=== PATIENT | female | born 1975 | race Caucasian/White ===

== ENCOUNTER 2020-04-24 23:49 | Emergency (ER) | payer MEDICAID, OTHER ==
[2020-04-25] MEDS ORDERED: Ativan 2 MG/1 ML VIAL ONE (00:04)
[2020-04-25] MEDS ORDERED: Sodium Chloride 0.9% 1000 ML 1,000 ML IV STA (00:04)
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
[2020-04-25] MEDS ORDERED: Ativan 2 MG/1 ML VIAL IM ONE (00:20)
[2020-04-25] MEDS ORDERED: Sodium Chloride 0.9% 1000 ML 1,000 ML ONE (00:20)
[2020-04-25 00:29] LABS: Absolute Neutrophil Ct (ANC) 5.88 (1.4-6.9); BASOPHIL % 0.5 % (0.0-0.4); Basophil (Absolute #) 0.05 (0-0.4); Eosinophil % 1.9 % (0.00-5.0); Hematocrit 39.7 % (35-47); Hemoglobin 13.3 gm/dl (12.0-16.0); Lymphocyte (Absolute #) 3.75 (1.0-4.6); Lymphocytes % 35.6 % (24.0-44.0); Mean Cell Volume 97.5 fl (78-100); Mean Corpuscular Hemoglobin 32.7 pg (26-32); Mean Corpuscular Hgb Concent. 33.5 g/dl (32-36); Mean Platelet Volume 9.9 fl (7.5-11.0); Monocyte (Absolute #) 0.66 (0.0-1.3); Monocytes % 6.3 % (0.0-12.0); Neutrophil % 55.7 % (36.0-66.0); Platelet Count 378 K/mm3 (150-450); Red Blood Count 4.07 M/mm3 (4.1-5.4); Red Cell Distribution Width 13.2 % (11.5-14.0); White Blood Count 10.5 K/mm3 (4.0-10.5)
[2020-04-25 00:42] LABS: ALBUMIN 4.3 g/dL (3.5-5.0); ALKALINE PHOSPHATASE 80 U/L (38-126); ANION GAP 16.3 MEQ/L (5-15); BLOOD UREA NITROGEN 11 mg/dL (7-17); CHLORIDE 110 mmol/L (98-107); Carbon Dioxide 23 mmol/L (22-30); Creatinine 1 0.61 mg/dL (0.52-1.04); ETHYL ALCOHOL 252 mg/dL (0-10); Glucose 110 mg/dL (74-106); Potassium 3.9 mmol/L (3.5-5.1); SGOT/AST 19 U/L (14-36); SGPT/ALT 10 U/L (0-35); SODIUM 146 mmol/L (137-145); Total Protein 8.2 g/dL (6.3-8.2)
[2020-04-25 00:43] LABS: ACETAMINOPHEN < 10 ug/ml (10-30)
[2020-04-25 06:41] LABS: Amphetamine,Urine NEGATIVE (NEGATIVE); Barbiturate,Urine NEGATIVE (NEGATIVE); Benzodiazepine,Urine POSITIVE (NEGATIVE); Cocaine,Urine NEGATIVE (NEGATIVE); Methadone,Urine NEGATIVE (NEGATIVE); Opiate,Urine NEGATIVE (NEGATIVE); PCP,Urine NEGATIVE (NEGATIVE); THC,Urine POSITIVE (NEGATIVE)
--- NOTE | 2020-04-25 07:50 | XRAY ---
Indication: Alcohol intoxication. Possible fall. Multiple contiguous axial images obtained through the head without contrast. Comparison: None Ventriculosulcal pattern appears symmetric. No acute intracranial hemorrhage, abnormal extra-axial fluid collection, or mass effect. Incidental empty sella. Fourth ventricle is midline without hydrocephalus. Bony calvarium intact. Minimal mucosal thickening of both ethmoid sinuses. Mastoid air cells are clear. Impression: Minimal paranasal sinus disease. Remaining CT head without contrast exam is negative. Comment: Preliminary interpretation was made by [facility]. No critical discrepancy.
--- NOTE | 2020-04-25 07:55 | XRAY ---
Indication: Alcohol intoxication. Possible fall. Multiple contiguous axial images obtained through the cervical spine. Sagittal and coronal reformatted images obtained. Comparison: None Several images slightly degraded by motion artifact. Axial images negative for acute fracture, suspicious bony lesions, or spinal canal stenosis. Mild/moderate C3-C7 degenerative endplate spurring. Also mild/moderate multilevel bilateral degenerative facet hypertrophy. Sagittal and coronal reformatted images demonstrates cervical lordotic reversal centered at C4. Mild/moderate C3-C7 disc space narrowing/loss greatest at the C4-C5 level. No acute compression fracture, subluxation, or jumped facet. Normal appearing craniocervical junction. Patient is edentulous. Visualized noncontrasted soft tissues demonstrates biapical pulmonary fibrosis/scarring and emphysema. CT head reported separately. Impression: 1. Minimal motion artifact. 2. Cervical lordotic reversal, positional versus paraspinal spasm. Negative acute fracture/subluxation. 3. Multilevel degenerative changes and biapical pulmonary fibrosis/scarring/emphysema. Comment: Preliminary interpretation was made by [facility]. No critical discrepancy.
[2020-04-25 07:59] VITALS: BP 131/63; PULSE 98; O2SAT 97
[2020-04-25 09:19] LABS: Appearance SLIGHTLY CLOUDY (CLEAR); Leukocyte Esterase SMALL (NEGATIVE); Nitrite POSITIVE (NEGATIVE); Specific Gravity 12 (1.005-1.025)
[2020-04-25 09:20] LABS: Bacteria FEW /HPF (NEGATIVE); Bilirubin NEGATIVE (NEGATIVE); Blood NEGATIVE Ery/ul (0-5); Epithelial Cells FEW /HPF (FEW); Glucose NEGATIVE (NEGATIVE); Ketones NEGATIVE (NEGATIVE); Protein,Urine Dip NEGATIVE (Negative); Urobilinogen NORMAL mg/dL (0-1); WBC 51-100 /HPF (0-5)
== END 2020-04-25 07:52 | disposition home or self-care (01) ==
LOC: ED 23:49
DX: F10.10 Alcohol abuse, uncomplicated (principal)
CPT/HCPCS: 36000; 36415; 70450; 72125; 80053; 80307; 81001; 81025; 85025; 87077; 87086; 87186; 93005; 96360; 96372; 99284; G0480; G0481; J2060